=== PATIENT | female | born 1945 | race Caucasian/White ===

== ENCOUNTER 2016-11-13 13:48 | Emergency (ER) | payer MEDICARE, OTHER ==
[~2016-11-13 13:48] MED LIST: ALDACTONE50 MG PO; ATARAX25 MG PO; BACLOFEN 10MG T10 MG PO; CERTAGEN1 EACH PO; COREG 3.125M3.125 MG PO; FEOSOL325 MG PO; LACTULOSE10 G/15 ML PO; LASIX20 MG PO; LAXATIVE5 M1 PO; OXY-IR 5MG5 MG PO; PEPCID AC20 MG PO; PERCOCET 5/3251 TAB PO; PROZAC20 MG PO; VITAMIN B122500 MCG PO
[2016-11-13 15:23] LABS: BASOPHIL 0.3 % (0-2); EOSINOPHIL 4.7 % (0-7); HCT 35.3 % (37.0-47.0); HGB 12.1 g/dl (12.5-16.0); MCHC 34.3 g/dL (32.0-36.0); MCV 87.4 fL (78.0-100.0); MONOCYTE 11.5 % (0-12); MPV 10.2 fL (6.0-9.5); NEUTROPHIL 56.5 % (41-80); RBC 4.04 M/uL (4.20-5.40); RDW 14.5 % (11.5-14.0)
[2016-11-13 15:24] LABS: INR 1.39 (0.9-1.2); PROTHROMBIN TIME 16.6 SECONDS (11.7-14.0)
[2016-11-13 15:25] LABS: PTT 31.4 SECONDS (23.2-31.4)
[2016-11-13 15:28] LABS: PLT 42 K/uL (150-400)
[2016-11-13 15:30] LABS: ALBUMIN 3.5 g/dL (3.4-4.8); BILIRUBIN - TOTAL 0.8 mg/dL (0.1-1.0); GLOBULIN (CALCULATION) 2.9 g/dL (2.2-4.2); POTASSIUM 3.4 mmol/L (3.5-5.1); TOTAL PROTEIN 6.4 g/dL (6.4-8.3)
== END 2016-11-13 17:27 | disposition home or self-care (01) ==
LOC: FER 13:48
PROVIDERS: Emergency Medicine
DX: D69.6 Thrombocytopenia, unspecified (principal); K74.60 Unspecified cirrhosis of liver; Z88.0 Allergy status to penicillin
CPT/HCPCS: 36415; 80053; 85025; 85610; 85730; 99283